=== PATIENT | female | born 1975 | race Caucasian/White ===

== ENCOUNTER 2019-01-20 06:43 | Day surgery (SDC) | payer OTHER ==
[~2019-01-20] VITALS: Ht 167.6 cm; Wt 78.7 kg
[~2019-01-20 06:43] MED LIST: ADV10050 INH; CEPH500C PO; LEVA15HF6 INH; PRED20TA PO; ibuprofen; neurontin; omeprazole
[2019-01-20 07:53] VITALS: Ht 167.6 cm; Wt 78.7 kg
[2019-01-20 08:03] VITALS: BP 111/58; PULSE 54; RESP 13
[2019-01-20] MEDS ORDERED: PROPOFOL 40 ML ONE (09:05)
[2019-01-20 09:32] VITALS: BP 97/76; PULSE 55; RESP 24
== END 2019-01-20 09:58 | disposition home or self-care (01) ==
LOC: GIL 06:43
PROVIDERS: ATTEND Internal Medicine Gastroenterology
DX: Z86.010 Personal history of colon polyps (principal); K64.8 Other hemorrhoids; K21.9 Gastro-esophageal reflux disease without esophagitis; K29.50 Unspecified chronic gastritis without bleeding
CPT/HCPCS: 43239; 45378; 84703; 88305; 88312; Z7610